=== PATIENT | male | born 1955 | race Caucasian/White ===

== ENCOUNTER 2017-01-23 10:09 | Emergency (ER) | payer BC ==
[~2017-01-23] VITALS: Ht 172.7 cm; Wt 87.7 kg
[~2017-01-23 10:09] MED LIST: ADVIL,NUPRIN,M200 MG PO; ASCORBIC ACID500 M3 PO; B COMPLETE1 EACH PO; ENDOCET 5-3251 EACH PO; FAMCICLOVIR500 MG PO; LEVAQUIN500 MG PO; PERCOCET 5/31 TABLET PO; TIZANIDINE HCL4 MG PO; VITAMIN D31000 UNI2 PO; VITAMIN E100 UNIT PO
[2017-01-23 10:13] VITALS: BP 158/98
== END 2017-01-23 11:41 | disposition home or self-care (01) ==
LOC: EME 10:09
DX: S81.012A Laceration without foreign body, left knee, initial encounter (principal); W29.3XXA Contact with powered garden and outdoor hand tools and machinery, initial encounter; Z96.659 Presence of unspecified artificial knee joint
CPT/HCPCS: 99281; 99283

== ENCOUNTER 2017-08-27 07:33 | Emergency (ER) | payer BC ==
[~2017-08-27] VITALS: Ht 172.7 cm; Wt 88.4 kg
[2017-08-27 08:24] LABS: EOSINOPHIL (%) 0.1 % (0-5); HEMATOCRIT 40.8 % (38.0-50.0); IMMATURE GRANULOCYTE (%) 0.3 % (0.0-0.7); INSTRUMENT ABS NEUTROPHIL CT 11.3 K/uL; LYMPHOCYTE COUNT 0.5 K/uL (1.0-2.8); MCH 30.1 PG (29.0-34.0); MCHC 33.8 G/DL (30.0-36.0); MCV 88.9 FL (86-99); MONOCYTE COUNT 0.8 K/uL (0-0.8); NEUTROPHIL (%) 89.6 % (45-76); NEUTROPHIL COUNT 11.3 K/uL (1.8-6.4); PLATELET COUNT 134 K/uL (156-360); RBC DIS.WIDTH-CV 11.9 % (11.8-14.6); RBC DIS.WIDTH-SD 38.3 % (39-53); RED BLOOD COUNT 4.59 M/uL (4.00-5.50); WHITE BLOOD COUNT 12.6 K/uL (4.1-10.2)
[2017-08-27 08:30] LABS: ADD MIUA? YES; BILIRUBIN NEGATIVE; BLOOD MODERATE; COLOR DK YELLOW ((YELLOW)); GLUCOSE (STRIP) >=500; KETONES 5; LEUKOCYTES NEGATIVE; NITRITE NEGATIVE; PROTEIN (STRIP) 30; SPECIFIC GRAVITY 1.025 (1.000-1.030)
[2017-08-27 08:35] LABS: CHLORIDE 105 mEq/L (99-109); POTASSIUM 3.9 mEq/L (3.7-5.4); SODIUM 137 mEq/L (136-147)
[2017-08-27 08:38] LABS: GLUCOSE 113 mg/dL (70-99)
[2017-08-27 08:38] LABS: BACTERIA 3+ /HPF; EPITHELIAL CELLS NONE SEEN /HPF; MUCUS TRACE /LPF; RED BLOOD CELLS NONE SEEN /HPF (0-5); WHITE BLOOD CELLS 0-5 /HPF (0-5)
[2017-08-27] MEDS ORDERED: GABAPENTIN100 MG PO (08:38)
[2017-08-27 08:39] LABS: ANION GAP 10 MEQ/L (2-14)
[2017-08-27 08:40] LABS: TOTAL BILIRUBIN 0.7 mg/dL (0.0-1.0)
[2017-08-27 08:41] LABS: ALKALINE PHOSPHATASE 82 IU/L (3-129); GFR ESTIMATE (CALCULATED) > 59 mL/min/
[2017-08-27 08:42] LABS: UREA NITROGEN (BUN) 13 mg/dL (9-23)
[2017-08-27] MEDS ORDERED: MIRALAX17 GM PO (09:22)
[2017-08-27 09:26] VITALS: BP 110/70
== END 2017-08-27 10:16 | disposition home or self-care (01) ==
LOC: EME 07:33
PROVIDERS: Emergency Medicine
DX: N39.0 Urinary tract infection, site not specified (principal); K59.00 Constipation, unspecified; M79.1 Myalgia; Z96.653 Presence of artificial knee joint, bilateral
CPT/HCPCS: 74022; 80053; 81003; 85025; 99281; 99284